=== PATIENT | female | born 1980 | race Caucasian/White ===

== ENCOUNTER 2016-06-07 12:32 | Day surgery (SDC) | payer OTHER ==
[~2016-06-07] VITALS: Ht 167.6 cm; Wt 113.4 kg
--- NOTE | 2016-06-07 07:33 | PCM.HPANE ---
Patient Data Surgeon Admitting Provider: Attending Provider:Hong Lamar MD Primary Care Physician:Bridget Harrell MD Other Provider:[place] Anesthesia Reason for Visit Diarrhea Ht/WT & BMI Body Mass Index Allergies Coded Allergies: No Known Allergies (Verified , 08/03/07) Medications Reported Medications Beclomethasone Dipropionate (Qvar)8.7 Gm Aer.w.adap1 Puff INHALATION BID #8.7 GM 06/06/16 Prazosin 2 Mg Capsule2 Mg PO HS 06/06/16 oxyCODONE-Acetaminophen 5-325 mg 1 Each Tablet1 Tab PO Q4H PRN For Pain Ref 0 06/06/16 Methocarbamol 750 Mg Xbwper925 Mg PO QID PRN For Spasm Ref 0 06/06/16 Ibuprofen 800 Mg Caktgg459 Mg PO TID PRN For Pain Ref 0 06/06/16 Gabapentin 600 Mg Elmydt739 Mg PO TID Ref 0 06/06/16 Duloxetine 30 Mg Capsule.dr30 Mg PO DAILY Ref 0 06/06/16 Clonazepam 0.5 Mg Tablet0.5 Mg PO BID PRN For Anxiety Ref 0 06/06/16 Baclofen 10 Mg Npnith70 Mg PO TID Ref 0 06/06/16 Albuterol Sulfate (Proair Respiclick)90 Mcg Aer.pow.ba90 Mcg IH 06/06/16 Stop/Bang Risk Assessment Category Category 1A: Patient has history of documented sleep apnea, and HAS NOT received any narcotic, sedative or anesthesia administration during this stay. Category 1B: Patient has history of documented sleep apnea, and HAS received any narcotic , sedative or anesthesia administration during this stay Category 2: Patient has SUSPECTED Obstructive Sleep Apnea, and HAS received any narcotic , sedative or anesthesia administration during this stay. Category 3: Patient has SUSPECTED Obstructive Sleep Apnea and HAS NOT received narcotic, sedative or anesthesia administration during this stay. Category 4: Outpatient in Procedural Areas with known sleep apnea or who screen positive for High Risk via the STOP/BANG questionnaire. Exam Exam General Appearance: Alert, Oriented X3, Cooperative, No Acute Distress HEENT/AIRWAY: MP 1 Lungs: Normal Air Movement Heart: Regular Rate/Rhythm Plan Impression Patient chart reviewed, patient interviewed and anesthestic plan with risks, benefits, and alternatives discussed, and informed consent obtained. ASA Physical Status: ASA2 Mod Systemic Disease Anesthetic Plan: MAC Bene/Risks/Altern/Consents: Yes HP Complete Prior to Induction: Yes Christy Lozano DO Jun 07, 2016 07:33
[~2016-06-07 12:32] MED LIST: ALBU90AE IH; BACL10TA PO; BECL8.7A5 INHALATION; DULO30CA50 PO; GABA600T2 PO; IBUP800T28 PO; KLO5T PO; Lactated Ringer's 1,000 ML IV ONE; METH750T3 PO; OXYC1TAB24 PO; PRAZ2CAP2 PO
[2016-06-07] MEDS ORDERED: Propofol 10,000 mCg/mL 20 mL Inj ONE ×2 (12:33)
[2016-06-07 12:46] VITALS: BP 117/69; PULSE 85; RESP 16; O2SAT 99
--- NOTE | 2016-06-07 13:46 | PCM.ANEP2 ---
Post Anesthesia Evaluation ASA/CMS Post Anesthesia VS in Patient's Normal Range?: Yes Resp Stable; Airway Patent?: Yes CV Function & Hydration Stable: Yes Mental Status Recovered?: Yes Pain control Satisfactory?: Yes N/V Control Satisfactory?: Yes Christy Lozano DO Jun 07, 2016 13:46
--- NOTE | 2016-06-07 13:46 | PCM.ANEP1 ---
Post Anesthesia Phase 1 PACU Phase 1 Assessment Vital Signs Vital Signs Date Time Temp Pulse Resp B/P Pulse Ox O2 Delivery O2 Flow Rate FiO2 06/07/16 12:46 37.1 85 16 117/69 99 Room Air Anesthetic Administered: MAC Level of Alertness: Sleepy, easy to arouse ROMANO's with Equal Strength: Yes Pain: No Nausea or Vomiting: No Oxygen Delivery: Room Air Lungs: Normal Air Movement Christy Lozano DO Jun 07, 2016 13:46
[2016-06-07 13:59] VITALS: BP 93/53; PULSE 66; O2SAT 98
[2016-06-07 14:06] VITALS: BP 106/62; PULSE 61; O2SAT 98
--- NOTE | 2016-06-07 14:17 | ENDO ---
[address] [address] ENDOSCOPY PROCEDURE PATIENT: FREDDY RODRIGUEZ : 1980 MR#: [id number] ADMIT: 06/07/2016 JOB ID: [id number] DATE OF SERVICE: 06/07/2016 PRIMARY PROVIDER: Bridget Harrell MD. PROCEDURE: Colonoscopy with stool acquisition for PCR analysis, biopsies. INDICATIONS: A 36-year-old female with chronic diarrhea of uncertain etiology. EQUIPMENT: [employer]AL. SEDATION: Monitored anesthesia as provided by Dr. Christy Lozano. COMPLICATIONS: None identified. BOWEL PREPARATION: Fair, adequate exam. PROCEDURE INFORMATION: After the risks and benefits were explained, written and verbal informed consent was obtained. The patient was brought into the endoscopy suite and placed into the left lateral decubitus position. Sedation was achieved as above. A digital rectal examination accomplished. Mild internal hemorrhoids were noted. The scope was introduced into the rectum and advanced to the cecum as identified by the appendiceal orifice and ileocecal valve. The terminal ileum was briefly accessed, the scope then slowly withdrawn to carefully examine the mucosa for any defects or lesions. Multiple direct views were made through the dentate line for exclusion of pathology. The colon was decompressed. The scope removed from the patient who tolerated the procedure well. FINDINGS: The patient had a full appearing base to the appendix which fluctuated in appearance suggestive of probable slight appendiceal orifice inversion. Deeper submucosal pathology could not be excluded. I felt the area with the tip of the forceps and it was quite soft. The terminal ileum was interrogated and did not exhibit any overt inflammatory features. There was some obvious impressive macro nodularity and this was targeted for biopsy for histopathologic analysis. The colon itself was quite interesting. The patient had a rather diffuse colopathy that was more obvious and intense in the left colon and rectum. This was characterized by what really looked like noninflammatory macro-fissuring of the mucosa. I elected to take both right and left colon biopsies for histopathologic analysis. I did not appreciate any mass lesions. No significant polyps. Again, no significant inflammatory features identified. ENDOSCOPIC DIAGNOSES: 1. Diffuse colopathy. 2. Hemorrhoids. 3. Nodular-appearing terminal ileum. 4. Slightly inverted appendiceal orifice. RECOMMENDATIONS: 1. Await stool PCR results. The patient is encouraged to contact our office tomorrow for these results. If positive, then an appropriate antibiotic therapy will be initiated. 2. Await histopathology. If microscopic colitis is confirmed, then it would be advised that the patient consider dose reduction or discontinuation of duloxetine and even maybe a course of budesonide to gain control over symptoms. In the interim Imodium p.r.n. 3. The appearance of the appendiceal orifice is almost certainly from inversion into the lumen but further imaging is indicated to exclude an occult submucosal lesion. I discussed the case with Radiology, and they recommended a CT scan. I have ordered this. 4. Follow up in GI clinic to review all of the histologic, radiographic and clinical findings in the next couple of weeks within Mr. Marlo Moss.
--- NOTE | 2016-06-09 13:18 | PATH ---
SURGICAL PATHOLOGY Attending Physician:Bonnie Daily CASE STATUS: Signed Out PATIENT NAME: FREDDY RODRIGUEZ PID: [id number] : 1980 DATE COLLECTED:06/07/2016 00:00 SPECIMEN: 1: Ileum, Biopsy 2: Colon, Biopsy 3: Colon, Biopsy CLINICAL HISTORY: 1). TERMINAL ILEUM BIOPSY 2). RIGHT COLON BIOPSY 3). LEFT COLON BIOPSY FINAL DIAGNOSIS: 1.TERMINAL ILEUM BIOPSY: FRAGMENTS OF NORMAL-APPEARING TERMINAL ILEUM MUCOSA WITH PROMINENT HYPERPLASIA OF PEYER' S PATCHES. Negative for granulomas. Negative for significant inflammation, dysplasia and malignancy. 2. 3. RANDOM COLON BIOPSIES, RIGHT AND LEFT: CHANGES CONSISTENT WITH LYMPHOCYTIC COLITIS INVOLVING BOTH SPECIMENS. Negative for dysplasia and malignancy. ICD10 code K52.89 NOTE: As part of a routine ethanol quality leader, Dr. Liliana Chavez has also reviewed parts 2 and 3 of this case and agrees with the diagnosis. GROSS DESCRIPTION: The specimen is received in three formalin filled containers labeled with the patient's name. 1). The specimen is sublabeled "terminal ileum" and consists of 2 portions of tissue which aggregate to 0.2 x 0.2 x 0.2 CM. The specimen is entirely submitted in cassette 1A. 2). The specimen is sublabeled "right colon" and consists of 2 portions of tissue which aggregate to 0.2 x 0.2 x 0.2 CM. The specimen is entirely submitted in cassette 2A. 3). The specimen is sublabeled "left colon" and consists of 2 portions of tissue which aggregate to 0.4 x 0.3 x 0.2 CM. The specimen is entirely submitted in cassette 3A. 06/08/2016 [facility] MICRO DESCRIPTION: See diagnosis. ICD-9 CODES: CPT CODES: 1: 36449 2: 31616 3: 09239 Electronically Signed Out Hong Valverde MD [facility] Pathology [facility] [address], [place] [address] Technical component performed at [facility], [address], [place], [address]
== END 2016-06-07 23:59 | disposition home or self-care (01) ==
LOC: END 12:32
PROVIDERS: ATTEND Internal Medicine Gastroenterology
DX: K52.89 Other specified noninfective gastroenteritis and colitis (principal); R19.7 Diarrhea, unspecified; K64.8 Other hemorrhoids; Z79.899 Other long term (current) drug therapy

== ENCOUNTER 2016-07-12 07:19 | Day surgery (SDC) | payer OTHER ==
[2016-07-12] VITALS (10 sets, daily range): BP systolic 116–152; BP diastolic 61–89; PULSE 70–107; RESP 10–18; O2SAT 96–99
[~2016-07-12] VITALS: Ht 170.2 cm; Wt 111.0 kg
[2016-07-12] MEDS: Lactated Ringer's 1,000 ML IV SCH ×2 (05:20→09:12)
[~2016-07-12 07:19] MED LIST changes: +CeFAZolin Inj 2 GM in IV Premix 1 EACH IV ONE; -DULO30CA50 PO; -Lactated Ringer's 1,000 ML IV ONE; +metroNIDAZOLE Inj 500 MG in IV Premix 1 EACH IV SCH
[2016-07-12] MEDS ORDERED: Ondansetron 2 mg/mL 2 mL Inj ONE (07:20)
[2016-07-12] MEDS ORDERED: Dexamethasone 4 mg/mL Inj ONE (07:20)
[2016-07-12] MEDS ORDERED: fentaNYL-PF 50 mCg/mL 2 mL Inj ONE (07:20)
[2016-07-12] MEDS ORDERED: Rocuronium 10 mg/mL 5 mL Inj ONE (07:20)
[2016-07-12] MEDS ORDERED: Propofol 10,000 mCg/mL 20 mL Inj ONE (07:20)
[2016-07-12] MEDS ORDERED: Lactated Ringer's 1,000 ML IV SCH (09:12)
[2016-07-12] MEDS ORDERED: Lactated Ringer's 500 ML IV PRN (09:12)
--- NOTE | 2016-07-12 09:12 | PCM.HPANE ---
Patient Data Surgeon Admitting Provider: Attending Provider:Jomar Lora MD Primary Care Physician:Bridget Harrell MD Other Provider:Yazmin [place] Anesthesia Reason for Visit Chronic Appendicitis Ht/WT & BMI Height (Feet): 5 Height (Inches): 7.00 Weight (Kilograms): 111.0 Body Mass Index 38.00 Allergies Coded Allergies: No Known Allergies (Verified , 08/03/07) Past Anesthesia History Anesthesia History: Denies:: Abnormal Airway, Anesthesia Reactions, Difficult Intubation, Fam Anesthesia Reaction, Fam Malignant Hypertherm, Malignant Hyperthermia Diabetes History Hx Diabetes?: No MRSA MRSA: No Medications Hypertension Medication: No Home Meds Incl Beta Cedric: No Reported Medications Beclomethasone Dipropionate (Qvar)8.7 Gm Aer.w.adap1 Puff INHALATION BID #8.7 GM 06/06/16 Prazosin 2 Mg Capsule2 Mg PO HS 06/06/16 oxyCODONE-Acetaminophen 5-325 mg 1 Each Tablet1 Tab PO Q4H PRN For Pain Ref 0 06/06/16 Methocarbamol 750 Mg Csfvmp353 Mg PO QID PRN For Spasm Ref 0 06/06/16 Ibuprofen 800 Mg Mztmpm694 Mg PO TID PRN For Pain Ref 0 06/06/16 Gabapentin 600 Mg Ityggh780 Mg PO TID Ref 0 06/06/16 Clonazepam 0.5 Mg Tablet0.5 Mg PO BID PRN For Anxiety Ref 0 06/06/16 Baclofen 10 Mg Cwrsws51 Mg PO TID Ref 0 06/06/16 Albuterol Sulfate (Proair Respiclick)90 Mcg Aer.pow.ba90 Mcg IH 06/06/16 Discontinued Reported Medications Duloxetine 30 Mg Capsule.dr30 Mg PO DAILY Ref 0 06/06/16 History HEENT History: Positive for:: TMJ (grinds, no nightguard) Denies:: Abnormal Airway Cataracts Difficult Intubation Dysphagia Glaucoma Hearing Problem Sinus Problem Hx of Heart Problems?: No Cardiovascular History: Positive for:: Irregular Heartbeat (panic attack palpitations) Denies:: AICD Abdominal Aortic Aneurism Atrial Fibrillation Chest Pain Congestive Heart Failure Coronary Artery Disease Edema Hypertension Pacemaker Valvular Heart Disease Hx of Respiratory Problem?: Yes Respiratory History: Positive for:: Asthma (OCCASIONAL INHALER) Cough Pneumonia (walking pneumonia- not for several years) Use of Inhalers / NEBS (doesnt use very often- mainly when ill) Denies:: COPD Hemoptysis Oxygen Administration Use of C-PAP Machine Hx Neurologic Problems?: No Neurological History: Positive for:: Headaches (not for quite a while) Denies:: CVA Dementia Multiple Sclerosis Parkinson's Disease Seizures TIA Hx of GI Problems?: Yes Gastrointestinal History: Denies:: Cirrhosis Diverticulitis Gall Bladder Disease Gastroesphageal Reflux Hepatitis Hiatal Hernia Liver Disease Rectal Bleeding Other GI Pertinent History: chronic appendicitis- current admission problem Hx of Problems?: No Genitourinary History: Denies:: Kidney Stones Urinary Tract Infection Female Hx: Denies:: Currently Problems with Breasts? Skin History: Denies:: History Skin Disorders? Pressure Ulcers Hx Musculoskeletal Problems?: Yes Musculoskeletal History: Positive for:: Fibromyalgia Musculoskeletal Trauma (poss being referred to rheumatology in [place]) Denies:: Joint Replacement Osteoarthritis Rheumatoid Arthritis Systemic Lupus Hx of Psycho/Social Problems?: Yes Psycho Social History: Positive for:: Anxiety (panic attacks- situational ) Hx Depression Hx Surgeries?: Yes (right knee arthroscopy) Hx Any Other Health Problems?: Yes Other History: Positive for:: Thyroid Disease ("irritated" and enlarged- being worked up currently ) Denies:: Cancer History Blood Transfusions: Positive for:: Accept Blood Products? Denies:: Blood Transfusions Hx Diabetes: No Hx Alcohol Use: NoHx Substance Use: Yes (marijuana inhaled daily)Have You Smoked inLast 12 mo: No Stop/Bang S-Snoring: Do You Snore Loudly: No T-Tired: feel tired, fatigued: No O-Obsered: Observed not breath: No P-Blood Pressure: treated: No B- Body Mass Index > 35 kg/m2: Yes A- Age over 50: No N- Neck Large Circumference: No G- Gender Male: No WILFRIDO Total Score: 1 Risk Assessment Category Category 1A: Patient has history of documented sleep apnea, and HAS NOT received any narcotic, sedative or anesthesia administration during this stay. Category 1B: Patient has history of documented sleep apnea, and HAS received any narcotic , sedative or anesthesia administration during this stay Category 2: Patient has SUSPECTED Obstructive Sleep Apnea, and HAS received any narcotic , sedative or anesthesia administration during this stay. Category 3: Patient has SUSPECTED Obstructive Sleep Apnea and HAS NOT received narcotic, sedative or anesthesia administration during this stay. Category 4: Outpatient in Procedural Areas with known sleep apnea or who screen positive for High Risk via the STOP/BANG questionnaire. Exam Exam Vital Signs Vital Signs Date Time Temp Pulse Resp B/P Pulse Ox O2 Delivery O2 Flow Rate FiO2 07/12/16 08:03 36.6 77 16 119/71 97 Room Air General Appearance: Alert, Oriented X3, Cooperative, No Acute Distress HEENT/AIRWAY: MP 2 Lungs: Clear to Auscultation, Normal Air Movement Heart: Exam Unremarkable, Regular Rate/Rhythm, No Murmurs/Rubs/Gallops Meds/Labs/Diagnostics Admission Meds Current Medications Lactated Ringer's (Lr) 1,000 ml @ 120 mls/hr Q8H20M IV Last administered on t 05:20; Start 07/12/16 at 05:00; Stop 07/12/16 at 13:19 Plan Impression Patient chart reviewed, patient interviewed and anesthestic plan with risks, benefits, and alternatives discussed, and informed consent obtained. NPO Status: 07/11 at 2230 ASA Physical Status: ASA2 Mod Systemic Disease Anesthetic Plan: GA Bene/Risks/Altern/Consents: Yes HP Complete Prior to Induction: Yes Maruqes Sandy MD Jul 12, 2016 08:17
[2016-07-12] MEDS ORDERED: MetoCLOpramide 5 mg/mL 2 mL Inj IVPUSH PRN (09:15)
[2016-07-12] MEDS ORDERED: EPHEDrine Sulfate 50 mg/mL Inj IVPUSH PRN (09:15)
[2016-07-12] MEDS ORDERED: Dexamethasone 4 mg/mL Inj IVPUSH PRN (09:15)
[2016-07-12] MEDS ORDERED: Phenylephrine 10,000 mCg/mL Inj IVPUSH PRN (09:15)
[2016-07-12] MEDS ORDERED: Ondansetron 2 mg/mL 2 mL Inj IVPUSH PRN (09:15)
[2016-07-12] MEDS ORDERED: Bupivacaine 0.5%/EPI 50 mL Inj INFILTRATE ONE (09:29)
[2016-07-12] MEDS ORDERED: oxyCODONE-Acetamin 5-325 mg Tablet PO PRN (10:15)
--- NOTE | 2016-07-12 10:16 | PCM.DISURG ---
Surgical Discharge Instruction Date of Service Jul 12, 2016 Dates of Hospitalization Date of Hospital Admission Providers Admitting Physician: Primary Care Physician: Bridget Harrell MD Attending Physician: Jomar Lora MD Discharge Diagnosis Discharge Diagnosis Chronic appendicitis Diet Discharge Diet: No restrictions Activity Discharge Activity-General: No lifting >15 pounds for 2 weeks Dressing and Incisional Care Dressing Care: Allow Steri Stripes to fall off, Remove outer dressing after 24 hrs Hygiene: May shower after (24 hours) Follow Up Plan Follow Up Plan In the general surgery [place] postoperative clinic in 2-3 weeks Call your provider for: Fever (over 101.5), Discharge @ incision, pus discharge Jomar Lora MD Jul 12, 2016 10:16
--- NOTE | 2016-07-12 10:22 | PCM.SURGOP ---
Surgical Operative Report Date of Service: Jul 12, 2016 Pre Operative Diagnosis Chronic appendicitis Post Operative Diagnosis Same Procedure: Laparoscopic appendectomy Surgeon and Provider Relations Specialist: Surgeon: Jomar Lora MD Assistants: Genaro Kumar PA-C Indication for Procedure 36-year-old woman who has had 3 months of diarrhea, as well as right flank and right lower quadrant pain since 2007. She has nausea every day. She underwent a colonoscopy which showed diffuse colopathy, but also had an abnormal appearance of the appendiceal orifice with bulging into the cecum. A CT scan of the abdomen and pelvis was then obtained which showed that the appendix was mildly dilated to 9 mm with an appendicolith. After discussion of risks and benefits, she agreed to proceed with appendectomy. Findings: The appendix was mildly enlarged, but was soft. There was no visible inflammatory change. Both ovaries and uterus appeared normal. There was no evidence of small bowel or colon thickening. Procedure Details After smooth induction of general anesthesia, the patient was placed in the supine position. The abdomen was prepped and draped in wide sterile fashion. A procedural pause was performed according to the SCOAP checklist, and all were found to be in agreement. A curvilinear infraumbilical incision was made. Dissection was carried down with electrocautery until the midline fascia was incised vertically and the peritoneal cavity was entered without difficulty. A 5 mm port was placed. Pneumoperitoneum was established. Two additional ports were placed under visualization. A 5 mm port was placed in the midline above the symphysis pubis , and a 12 mm port in the left lower quadrant, lateral to the inferior epigastric vessels. The patient was placed head down with the right side up. The small bowel was retracted. The greater omentum was retracted. The appendix was visualized, which was mildly enlarged, but had no visible inflammatory changes. A window was created at the base of the appendix in the mesoappendix. The appendiceal stump was then divided using an Endo UMESH stapler with a 45 mm blue load. The mesoappendix was divided with a vascular load. The appendix was placed into an Endo Catch bag. There was some bleeding from both staple lines, both on the appendiceal stump and the mesoappendix. Both were controlled with electrocautery. The right lower quadrant was irrigated and suctioned. The appendiceal stump was intact and hemostasis was achieved. The pelvis was evaluated. Both ovaries looked normal, and the uterus appeared normal. There was no evidence of thickening of the terminal ileum or the right colon. The appendix was removed and passed off the field for permanent pathology. The 12 mm port was removed. The fascia of the 12 mm port site was closed using an inlet closure device with an 0 Vicryl suture. The remaining ports were removed under visualization and pneumoperitoneum was released. The skin incisions were closed using running 4-0 Monocryl subcutaneous stitches. Steri-Strips and sterile dressings were applied. At the end of the case all needle and sponge counts were correct 2. The patient was awakened from anesthesia without difficulty, and taken to the recovery room in satisfactory condition, having tolerated the procedure well. Complications There were no periprocedural complications identified. Surgical Specimen Removed: Yes Specimen sent to Pathology: Yes Surgical Specimen description: Appendix Anesthetic Plan: GA Grafts, Implants: None Output, Estimated Blood Loss: 50 Blood Administration during thornton: No Drains: None Catheters: None copies to: Max Moss PA-C; Bridget Harrell MD, Joshua D MD Jul 12, 2016 10:22
[2016-07-12] MEDS: fentaNYL-PF 50 mCg/mL 2 mL Inj IVPUSH PRN ×3 (10:34→11:05)
[2016-07-12] MEDS: HYDROmorphone 1 mg/mL Inj IVPUSH PRN ×2 (10:35→10:39)
--- NOTE | 2016-07-12 10:44 | PCM.ANEP1 ---
Post Anesthesia Phase 1 PACU Phase 1 Assessment Date of Service: Jul 12, 2016 Vital Signs Vital Signs Date Time Temp Pulse Resp B/P Pulse Ox O2 Delivery O2 Flow Rate FiO2 07/12/16 10:35 98 11 137/79 97 Room Air 07/12/16 10:30 97 14 137/79 98 Room Air 07/12/16 10:25 36.5 107 11 152/89 98 Room Air 07/12/16 08:03 36.6 77 16 119/71 97 Room Air Anesthetic Administered: GA Level of Alertness: Awake, talking ROMANO's with Equal Strength: Yes Pain: No Nausea or Vomiting: No Oxygen Delivery: Room Air Lungs: Clear to Auscultation, Normal Air Movement Dermatome Level: Full Sensation Marques Sandy MD Jul 12, 2016 10:43
--- NOTE | 2016-07-12 12:56 | PCM.ANEP2 ---
Post Anesthesia Evaluation ASA/CMS Post Anesthesia VS in Patient's Normal Range?: Yes Resp Stable; Airway Patent?: Yes CV Function & Hydration Stable: Yes Mental Status Recovered?: Yes Pain control Satisfactory?: Yes N/V Control Satisfactory?: Yes Marques Sandy MD Jul 12, 2016 12:56
--- NOTE | 2016-07-13 13:48 | PATH ---
SURGICAL PATHOLOGY Attending Physician:Bonnie Lema CASE STATUS: Signed Out PATIENT NAME: FREDDY RODRIGUEZ PID: [id number] : 1980 DATE COLLECTED:07/12/2016 16:12 SPECIMEN: Appendix CLINICAL HISTORY: CHRONIC APPENDICITIS 1. APPENDIX FINAL DIAGNOSIS: Appendix: Submucosal benign fibroadipose tissue. No active inflammation identified. No evidence of malignancy. ICD10: R10.9 GROSS DESCRIPTION: The specimen is received in one formalin filled container labeled with the patient's name, sublabeled "appendix" and consists of one cylindrical maravilla appendix measuring 5.5 x 1.3 x 1.3 CM. The serosal surface is light maravilla, smooth and glistening. There is a large amount of attached fatty tissue. Section reveals the wall to be thickened to approximately 0.2-0.3 CM in thickness. The lumen contains a light yellow kay semisolid to friable material. [facility] sections are submitted in one cassette. 07/12/2016 [facility] ICD-9 CODES: CPT CODES: 1: 16927 Electronically Signed Out Jean Paul Martinez MD [facility] Pathology [facility] [address], [place] [address] Technical component performed at [facility], [address] [place] [address] Ave[address], [place], [address]
== END 2016-07-12 23:59 | disposition home or self-care (01) ==
LOC: SAS 07:19
PROVIDERS: ATTEND Student in an Organized Health Care Education/Training Program
DX: K36 Other appendicitis (principal); K52.9 Noninfective gastroenteritis and colitis, unspecified; J45.909 Unspecified asthma, uncomplicated; F41.9 Anxiety disorder, unspecified; E66.9 Obesity, unspecified; F32.9 Major depressive disorder, single episode, unspecified; M79.7 Fibromyalgia; F12.90 Cannabis use, unspecified, uncomplicated; Z68.39 Body mass index [BMI] 39.0-39.9, adult